=== PATIENT | female | born 1960 | race African-American/Black ===

== ENCOUNTER → 2017-02-07 | Outpatient (CLI) | payer MEDICAID ==
--- NOTE | 2017-02-07 17:04 | RADIOLOGY REPORT (SQ) ---
EXAM DESCRIPTION: LUMBAR SPINE COMPLETE COMPLETED DATE/TIME: 02/07/2017 2:30 pm REASON FOR STUDY: LUMBAGO WITH SCIATICA, RIGHT SIDE M54.41 LUMBAGO WITH SCIATICA, RIGHT SIDE COMPARISON: CT 2015. NUMBER OF VIEWS: Five views including obliques. TECHNIQUE: AP, lateral, oblique, and sacral radiographic images acquired of the lumbar spine. LIMITATIONS: None. FINDINGS: MINERALIZATION: Normal. SEGMENTATION: Assuming diminutive 12th ribs, the L5 vertebral body areas largely sacralized. ALIGNMENT: Normal. VERTEBRAE: Maintained height. No fracture or worrisome bone lesion. DISCS: Relatively maintained. Lower thoracic and upper lumbar mild disc related osteophytes. POSTERIOR ELEMENTS: No pars defect. Mild facet arthropathy in the lower lumbar region. HARDWARE: None in the spine. PARASPINAL SOFT TISSUES: Normal. PELVIS: Intact as visualized. No fractures or worrisome bone lesions. SI joints intact. OTHER: No other significant finding. IMPRESSION: 1. Variant lumbosacral anatomy. No spinal malalignment, fracture or bone lesion. Mild spondylosis. TECHNICAL DOCUMENTATION: JOB ID: [id number] [employer]- All Rights Reserved
== END ==
LOC: OD 14:14
PROVIDERS: ATTEND Nurse Practitioner Acute Care
DX: M54.41 Lumbago with sciatica, right side (principal)
CPT/HCPCS: 72110

== ENCOUNTER → 2017-05-17 | Outpatient (CLI) | payer MEDICAID ==
[2017-05-17 17:58] LABS: ANION GAP 10 (5-19); BLOOD UREA NITROGEN 12 mg/dL (7-20); CALCIUM 9.7 mg/dL (8.4-10.2); CARBON DIOXIDE 25 mmol/L (22-30); CHLORIDE 106 mmol/L (98-107); GLUCOSE 105 mg/dL (75-110); POTASSIUM 3.8 mmol/L (3.6-5.0); SODIUM 141.1 mmol/L (137-145)
== END ==
LOC: OD 16:22
DX: I73.9 Peripheral vascular disease, unspecified (principal)
CPT/HCPCS: 36415; 80048

== ENCOUNTER → 2017-11-15 | Outpatient (CLI) | payer MEDICAID ==
[~2017-11-15] MED LIST: REGADENOSON INJ 0.4 MG/5 ML DISP.SYRIN IV ONE
--- NOTE | 2017-11-16 07:56 | RADIOLOGY REPORT ---
STRESS TEST REPORT PATIENT NAME: MANUEL ALEJO ROOM#: DATE OF SERVICE: 11/15/2017 AGE: 57Y ORDER#: [id number] REFERRING MD: JP LEONG M.D. CONTINUATION SUMMARY OF FINDINGS/IMPRESSION: The overall quality of the study is poor. This is due to her inability to raise her left arm above her head, so there is attenuation from the left humerus being left in the lateral position during scanning. The left ventricular cavity is noted to be normal in size on both the rest and stress studies. There is no evidence of abnormal transient ischemic dilatation left ventricle. TID ratio was 1.06 and normal. The SPECT images showed a small mild reversible ischemia in the basal anterior wall. There is a small fixed perfusion defect in the basal inferior wall as well. The gated SPECT imaging showed normal motion contraction in both areas. The left ventricular ejection fraction was calculated at 57% and normal. IMPRESSION: MYOCARDIAL PERFUSION IMAGING IS ABNORMAL ALTHOUGH NONDIAGNOSTIC DUE TO LEFT HUMERAL ATTENUATION OF COUNTS IN THE LATERAL PROJECTION. THERE APPEARS TO BE A SMALL MILD REVERSIBLE DEFECT IN THE BASAL ANTERIOR WALL AND A SMALL FIXED PERFUSION DEFECT IN THE BASAL INFERIOR WALL, BOTH WITH NORMAL MOTION AND CONTRACTION. THE OVERALL LEFT VENTRICULAR SYSTOLIC FUNCTION IS NORMAL AT 57% AND NO REGIONAL WALL MOTION ABNORMALITY NOTED. NO PRIORS TODAY FOR COMPARISON. RECOMMENDATION: Treat as for coronary artery disease, trial of sublingual nitroglycerin to see if there is pain relief. Start the patient on aspirin, beta orlando, statins, and CCP as needed, emphasized stop smoking. If uncontrollable chest pain, send patient for cardiac catheterization. INTERPRETING PHYSICIAN: JP LEONG M.D. /: [id number] TT: [id number] ID: [id number] /: [id number] TD: [id number] JOB: [id number] cc:JP LEONG M.D. >
--- NOTE | 2017-11-17 11:28 | RADIOLOGY REPORT ---
STRESS TEST REPORT PATIENT NAME: MANUEL ALEJO ROOM#: DATE OF SERVICE: 11/15/2017 AGE: 57Y ORDER#: [id number] REFERRING MD: JP LEONG M.D. INDICATION: For assessment of chest pains. PROCEDURE PERFORMED: REST/STRESS SINGLE ISOTOPE CARDIOLITE SPECT IMAGING WITH IV LEXISCAN STRESS AND GATED SPECT IMAGING CLINICAL HISTORY: This 57-year-old black female with PAD, hypertension, hypercholesterolemia, use of tobacco, currently complains of chest pains. REPORT Initially the patient was scheduled for treadmill stress test but could not walk the treadmill. Test was therefore changed to IV Lexiscan stress. On 11/15/2017, the patient received IV Lexiscan 0.4 mg infused over 10 seconds. Resting heart rate was 73 bpm and increased to 109 bpm at end infusion. The resting blood pressure was 162/81 and increased to 180/83 at end infusion. The patient had symptoms of vague chest pressure, no chest pains, some nausea, some abdominal pressure. We were about to give her 60 mg caffeine IV to reverse her symptoms, but she finally said she felt better; therefore, the dose was canceled. The resting 12-lead EKG showed normal sinus rhythm, 71 bpm, left ventricular hypertrophy with secondary STT changes, T inversion was noted in the inferior leads. At end infusion, there was increased T inversions in the inferolateral leads. Myocardial perfusion imaging was performed at rest 60 minutes following injection of 10.9 mCi of Cardiolite. It was then noted the patient was unable to raise her left arm above her head and therefore imaging was done with patient's left arm by her side instead of the normal required position. Ten seconds after the IV Lexiscan injection the patient was injected with 31.1 mCi of Cardiolite and flushed. Gated post stress tomographic imaging was performed 60 minutes after stress. FINDINGS The overall quality of the study is poor. This is due to her inability to raise her left arm above her head, so there is attenuation from the left humerus being left in the lateral position during scanning. The left ventricular cavity is noted to be normal in size on both the rest and stress studies. There is no evidence of abnormal transient ischemic dilatation left ventricle. TID ratio was 1.06 and normal. The SPECT images showed a small mild reversible ischemia in the basal anterior wall. There is a small fixed perfusion defect in the basal inferior wall as well. The gated SPECT imaging showed normal motion contraction in both areas. The left ventricular ejection fraction was calculated at 57% and normal. IMPRESSION: MYOCARDIAL PERFUSION IMAGING IS ABNORMAL ALTHOUGH NONDIAGNOSTIC DUE TO LEFT HUMERAL ATTENUATION OF COUNTS IN THE LATERAL PROJECTION. THERE APPEARS TO BE A SMALL MILD REVERSIBLE DEFECT IN THE BASAL ANTERIOR WALL AND A SMALL FIXED PERFUSION DEFECT IN THE BASAL INFERIOR WALL, BOTH WITH NORMAL MOTION AND CONTRACTION. THE OVERALL LEFT VENTRICULAR SYSTOLIC FUNCTION IS NORMAL AT 57% AND NO REGIONAL WALL MOTION ABNORMALITY NOTED. NO PRIORS TODAY FOR COMPARISON. RECOMMENDATION: Treat as for coronary artery disease, trial of sublingual nitroglycerin to see if there is pain relief. Start the patient on aspirin, beta or[place], statins, and CCP as needed, emphasized stop smoking. If uncontrollable chest pain, send patient for cardiac catheterization. INTERPRETING PHYSICIAN: JP LEONG M.D. /: LUL TT: [id number] ID: [id number] /: [id number] TD: 0900 JOB: [id number] cc:Abhay ABDULLAHI MD >
== END ==
LOC: RAD 06:37
PROVIDERS: ATTEND Internal Medicine Cardiovascular Disease
DX: R07.89 Other chest pain (principal)
CPT/HCPCS: 93017; 78452; A9500; J2785; Q9969

== ENCOUNTER → 2018-01-02 | Outpatient (CLI) | payer MEDICAID ==
[2018-01-02 11:10] LABS: ALANINE AMINOTRANSFERASE 27 U/L (9-52); ALBUMIN 4.1 g/dL (3.5-5.0); ALKALINE PHOSPHATASE 130 U/L (38-126); ASPARTATE AMINO TRANSFERASE 22 U/L (14-36); BILIRUBIN,DIRECT 0.3 mg/dL (0.0-0.4); BILIRUBIN,TOTAL 0.4 mg/dL (0.2-1.3); CHOLESTEROL 166.86 mg/dL (0-200); TOTAL PROTEIN 7.5 g/dL (6.3-8.2); TRIGLYCERIDES 170 mg/dL (<150)
[2018-01-02 11:17] LABS: ANION GAP 11 (5-19); BLOOD UREA NITROGEN 15 mg/dL (7-20); C-REACTIVE PROTEIN 28.3 mg/L (<10.0); CARBON DIOXIDE 28 mmol/L (22-30); CHLORIDE 102 mmol/L (98-107); GLUCOSE 99 mg/dL (75-110); POTASSIUM 3.7 mmol/L (3.6-5.0); SODIUM 141.4 mmol/L (137-145)
[2018-01-02 11:21] LABS: DIRECT LDL 98 mg/dL (<100)
== END ==
LOC: OD 09:50
PROVIDERS: ATTEND Internal Medicine Cardiovascular Disease
DX: M75.01 Adhesive capsulitis of right shoulder (principal); M75.02 Adhesive capsulitis of left shoulder; E78.5 Hyperlipidemia, unspecified; Z79.899 Other long term (current) drug therapy
CPT/HCPCS: 36415; 80048; 80061; 80076; 84443; 85652; 86140

== ENCOUNTER → 2018-03-01 | Outpatient (CLI) | payer MEDICAID ==
[2018-03-01 11:48] LABS: ALANINE AMINOTRANSFERASE 19 U/L (9-52); ALBUMIN 4.3 g/dL (3.5-5.0); ALKALINE PHOSPHATASE 148 U/L (38-126); ASPARTATE AMINO TRANSFERASE 21 U/L (14-36); BILIRUBIN,DIRECT 0.2 mg/dL (0.0-0.4); BILIRUBIN,TOTAL 0.3 mg/dL (0.2-1.3); GAMMA-GLUTAMYL TRANSFERASE 84 U/L (8-78); TOTAL PROTEIN 7.6 g/dL (6.3-8.2)
== END ==
LOC: OD 10:33
PROVIDERS: ATTEND Internal Medicine Cardiovascular Disease
DX: R94.5 Abnormal results of liver function studies (principal)
CPT/HCPCS: 36415; 80076; 82977

== ENCOUNTER 2018-04-30 22:08 | Emergency (ER) | payer MEDICAID ==
[2018-04-30] MEDS ORDERED: NORMAL SALINE 1000 ML 1,000 ML IV ONE (22:39)
--- NOTE | 2018-04-30 22:53 | ER Document Report ---
ED General - General Chief Complaint: Altered Mental Status Stated Complaint: SHALLOW BREATHING Time Seen by Provider: 04/30/18 22:29 Primary Care Provider: JP LEONG MD [Primary Care Provider] - Follow up as needed Notes: Patient is a 58-year-old female who presents emergency department with altered mental status. Her daughters are at bedside to provide additional history. Her daughter stated that she was not getting any symptoms earlier and she had cooked dinner as usual, but then stated she had back pain and took baclofen for her back pain. Her daughters check on her and noticed that she was having some twitching and was unresponsive to any voices. They then brought her to the emergency department to to have her evaluated. She has a history of hypertension, hyperlipidemia, and is being followed by Dr. Leong for cardiology. She is currently taking atorvastatin, lisinopril, metoprolol, and hydrochlo rothiazide. TRAVEL OUTSIDE OF THE [place] IN LAST 30 DAYS: No - Related Data Allergies/Adverse Reactions: No Known Allergies Allergy (Verified 03/09/16 13:20) Past Medical History - General Information source: Relative - Social History Smoking Status: Unknown if Ever Smoked Family History: None - Past Medical History Cardiac Medical History: Reports: Hx Hypertension - Immunizations Hx Diphtheria, Pertussis, Tetanus Vaccination: Yes Review of Systems - Review of Systems -: Yes ROS unobtainable due to patient's medical condition Physical Exam - Vital signs Vitals: Resp Pulse Ox 13 96 04/30/18 22:25 04/30/18 22:25 - Notes Notes: PHYSICAL EXAMINATION: GENERAL: Appears well, healthy, well-nourished, no acute distress. HEAD: Normocephalic, atraumatic. EYES: PERRL, conjunctiva normal, all extraocular movements intact, sclera nonicteric ENT: Moist mucous membranes. NECK: Supple, no noticeable swelling, redness, rash. Normal range of motion. LUNGS: Equal breath sounds bilaterally and clear to auscultation. No wheezes rales or rhonchi. CARDIOVASCULAR: S1-S2, regular rate, regular rhythm. Radial pulses 2+, normal. ABDOMEN: Normoactive bowel sounds. Soft, nontender, no guarding, no rebound tenderness, and no masses palpated. EXTREMITIES: Normal strength and range of motion, no pitting or edema. No cyan osis. NEUROLOGICAL: Moves all extremities upon command. Strength 5/5 in all extremities. Tired in appearance, falls asleep when asked questions. Twitching movements in upper and lower extremities. PSYCH: Normal mood, normal affect. SKIN: Warm, dry. No rash, lesions, ulcerations noted. Normal skin turgor. Course - Re-evaluation Re-evalutation: 04/30/18 22:45 Due to patient's altered mental status, she will be sent for her CT of the head to be evaluated for an acute stroke. Chest x-ray will be ordered and labs to rule out any other etiology of her altered mental status. Patient is oriented to person and place, but not time. 04/30/18 23:[address] of the head is normal and her chest x-ray is normal. I discussed these results with the patient and her children who are all at bedside. I witnessed the patient have 2 episodes of apnea while she was sleeping. She did desaturate to 91% while I was in the room. I have discussed with the children that the patient may need a sleep evaluation to see if she is having sleep apnea. Awaiting results of the rest of her labs. 05/01/18 00:54 Her urinalysis is negative at this time. Her CBC and chemistries are unremarkable. Her troponin is negative. This nursing staff had ambulated to the patient and she was steady on her feet, with a steady gait. She will follow-up with her primary care doctor and with a neurologist in regards to this visit. Verbal discharge instructions were given to the patient. They verbalized understanding. They are stable for discharge. Documentation was completed using voice recognition software, therefore there may be some unintended grammatical or punctual errors. - Vital Signs Vital signs: Temp Pulse Resp BP Pulse Ox 9 L 187/71 H 100 05/01/18 01:01 05/01/18 00:42 05/01/18 01:01 - Laboratory Result Diagrams: 04/30/18 23:20 04/30/18 23:20 Laboratory results interpreted by me: 04/30/18 04/30/18 04/30/18 23:20 23:20 23:52 RDW 15.8 H Carbon Dioxide 31 H Est GFR (Non-Af Amer) 56 L Glucose 112 H Alkaline Phosphatase 134 H Creatine Kinase 154 H Ur Leukocyte Esterase TRACE H - EKG Interpretation by Me Additional EKG results interpreted by me: 04/30/18 22:35 Sinus rhythm. Heart rate 65; NH 176; QRS 80; QT 456; QTC 475. No ST elevations or depressions. Her previous EKG from February 2016 had T wave inversions, but on tonight's EKG she does not have any T wave inversions. Discharge - Discharge Clinical Impression: Altered mental status Qualifiers: Altered mental status type: unspecified Qualified Code(s): R41.82 - Altered mental status, unspecified Condition: Stable Disposition: HOME, SELF-CARE Additional Instructions: You were seen today in the emergency department for altered mental status. It is unknown as to what is causing her altered mental status. Your labs, chest x- ray, and CAT scan are normal. If you have back pain again, please try to refrain from taking baclofen, as this medication can cause altered mental status. Please follow-up with your primary care provider in regards to this visit. See if you can have a sleep study done, because you had a few periods of apnea (not breathing) in your sleep. Also, please follow-up with a neurologist in regards to the twitching you were having. If you lose consciousness, have altered mental status again, develop chest pain, or unable to walk, or have any other symptoms that are worrisome to you, please return to the emergency department. Referrals: JP LEONG MD [Primary Care Provider] - Follow up as needed
--- NOTE | 2018-04-30 23:11 | RADIOLOGY REPORT (SQ) ---
EXAM DESCRIPTION: CT HEAD WITHOUT IV CONTRAST COMPLETED DATE/TME: 04/30/2018 22:38 CLINICAL HISTORY: 58 years Female, AMS COMPARISON: None. TECHNIQUE: No contrast. Coronal and sagittal reformat. This exam was performed according to our departmental dose-optimization program, which includes automated exposure control, adjustment of the mA and/or kV according to patient size and/or use of iterative reconstruction technique. FINDINGS: No hemorrhage or infarct. No mass, mass effect, or midline shift. Brain and extra-axial structures appear intact. IMPRESSION: Normal CT of the head.
--- NOTE | 2018-04-30 23:13 | RADIOLOGY REPORT (SQ) ---
EXAM DESCRIPTION: XR CHEST 1 VIEW COMPLETED DATE/TME: 04/30/2018 22:37 CLINICAL HISTORY: 58 years, Female, AMS Compared to 03/09/2016. FINDINGS: Heart is mildly enlarged. Aorta is within normal limits. No consolidation or pleural effusion. No pulmonary edema or pneumothorax. IMPRESSION: No acute disease.
[2018-04-30 23:31] LABS: ABSOLUTE EOSINOPHILS # (AUTO) 0.3 10^3/uL (0.0-0.6); ABSOLUTE LYMPHOCYTES (AUTO) 2.8 10^3/uL (0.5-4.7); ABSOLUTE MONOCYTES (AUTO) 0.8 10^3/uL (0.1-1.4); ABSOLUTE NEUT (AUTO) 5.9 10^3/uL (1.7-8.2); BASOPHILS % (AUTO) 0.2 % (0-2); EOSINOPHILS % (AUTO) 3.5 % (0-6); HEMATOCRIT 38.6 % (36.0-47.0); HEMOGLOBIN 13.1 g/dL (12.0-15.5); LYMPHOCYTES % (AUTO) 28.7 % (13-45); MEAN CORPUSCULAR HEMOGLOBIN 29.2 pg (27.0-33.4); MEAN CORPUSCULAR VOLUME 86 fl (80-97); MONOCYTES % (AUTO) 7.7 % (3-13); PLATELET COUNT 364 10^3/uL (150-450); RED BLOOD COUNT 4.49 10^6/uL (3.72-5.28); RED CELL DISTRIBUTION WIDTH 15.8 % (11.5-14.0); SEGMENTED NEUTROPHILS % (AUTO) 59.9 % (42-78); TOTAL CELLS COUNTED % (AUTO) 100 %; WHITE BLOOD COUNT 9.9 10^3/uL (4.0-10.5)
[2018-04-30 23:54] LABS: ALANINE AMINOTRANSFERASE 26 U/L (9-52); ALBUMIN 4.4 g/dL (3.5-5.0); ALKALINE PHOSPHATASE 134 U/L (38-126); ANION GAP 8 (5-19); ASPARTATE AMINO TRANSFERASE 21 U/L (14-36); BILIRUBIN,DIRECT 0.1 mg/dL (0.0-0.4); BILIRUBIN,TOTAL 0.2 mg/dL (0.2-1.3); BLOOD UREA NITROGEN 20 mg/dL (7-20); CALCIUM 10.1 mg/dL (8.4-10.2); CARBON DIOXIDE 31 mmol/L (22-30); CHLORIDE 106 mmol/L (98-107); CREATINE KINASE 154 U/L (30-135); GLUCOSE 112 mg/dL (75-110); POTASSIUM 3.7 mmol/L (3.6-5.0); SODIUM 144.5 mmol/L (137-145); TOTAL PROTEIN 7.2 g/dL (6.3-8.2)
[2018-05-01 00:04] LABS: CREATINE KINASE MB 0.59 ng/mL (<4.55)
[2018-05-01 00:11] LABS: TROPONIN I < 0.012 ng/mL
[2018-05-01 00:14] LABS: APPEARANCE,URINE CLEAR; BILIRUBIN,URINE NEGATIVE (NEGATIVE); COLOR,URINE YELLOW; GLUCOSE, URINE NEGATIVE (NEGATIVE); KETONES,URINE NEGATIVE (NEGATIVE); LEUKOCYTE ESTERASE,URINE TRACE (NEGATIVE); NITRITE,URINE NEGATIVE (NEGATIVE); PROTEIN,URINE NEGATIVE (NEGATIVE); URINE SPECIFIC GRAVITY 1.016; UROBILINOGEN,URINE NEGATIVE mg/dL (<2.0)
[2018-05-01 01:13] VITALS: BP 187/71
--- NOTE | 2018-05-01 06:13 | EKG REPORT ---
SEVERITY:- ABNORMAL ECG - SINUS RHYTHM CONSIDER LEFT VENTRICULAR HYPERTROPHY : Confirmed by: Juan M Garcia MD 01-May-2018 06:12:29
== END 2018-05-01 01:22 | disposition home or self-care (01) ==
LOC: ER 22:08
DX: R41.82 Altered mental status, unspecified (principal); M54.9 Dorsalgia, unspecified; I10 Essential (primary) hypertension
CPT/HCPCS: 93005; 99285; 51701; 36415; 82553; 82550; 85025; 80053; 81001; 84484; 71045; 70450; 93010; J7030